=== PATIENT | male | born 1950 | race Caucasian/White ===

== ENCOUNTER → 2018-03-09 10:08 | Outpatient (CLI) | payer OTHER, SELFPAY ==
--- NOTE | 2018-03-09 09:45 | DI.REPORT_ITS ---
SYMPTOMS/DIAGNOSIS: RT KNEE PAIN, S/P INJURY RIGHT KNEE: Three views were provided. When compared with the previous examination, again noted is a small bony fragment adjacent to the medial femoral condyle. Again noted is mild periarticular hypertrophic spurring. The joint spaces are intact. There is no evidence of an effusion.
== END ==
PROVIDERS: PCP Neuromusculoskeletal Medicine & OMM; Visit Provider Physician Assistant
DX: M25.561 Pain in right knee (principal); M76.891 Other specified enthesopathies of right lower limb, excluding foot; S87.01XD Crushing injury of right knee, subsequent encounter
CPT/HCPCS: 73562

== ENCOUNTER → 2018-10-17 14:11 | Outpatient (BNVA) | payer MEDICARE, SELFPAY | PROVIDERS: PCP Neuromusculoskeletal Medicine & OMM; Referring Provider Neuromusculoskeletal Medicine & OMM; Visit Provider Student in an Organized Health Care Education/Training Program | DX: M67.441 Ganglion, right hand (principal); R22.1 Localized swelling, mass and lump, neck | CPT/HCPCS: 99214 ==

== ENCOUNTER 2018-10-21 06:22 | Day surgery (SDC) | payer MEDICARE, SELFPAY ==
[2018-10-21 06:33] VITALS: BP 132/89; PULSE 55; RESP 18; TEMP 35.6; O2SAT 100
[2018-10-21] MEDS: Lactated Ringers 1,000 ML 80 ML IV (06:46)
[2018-10-21] MEDS: ceFAZolin 1 GM/50 ML BAG IVPB (07:31)
[2018-10-21] MEDS: Bupivacaine 0.5% Pres-Free 30 ML VIAL (07:56)
[2018-10-21] MEDS: Lidocaine 1% Pres-Free 5 ML VIAL (07:57)
[2018-10-21] MEDS: Dexamethasone 4 MG/ML VIAL (08:18)
--- NOTE | 2018-10-21 08:40 | PDOC.DSDIS_ITS ---
Discharge Plan Disposition Patient Disposition: HOME Condition: Good Discharge Details Attending Provider: Will Sanchez Primary Care Provider: Slim Corley Roosevelt Meds and New Rx's Prescriptions: New ibuprofen 600 mg tablet 600 mg PO QID PRN (Reason: pain and inflamation) Qty: 40 RF: 0 Continued acyclovir [Zovirax] 30 GM ointment 1 applic Topical BID PRN Qty: 3 RF: 4 naproxen sodium [Aleve] 220 mg Capsule 220 mg PO BID RF: 0 losartan 25 MG tablet 25 mg PO HS RF: 0 omeprazole 20 MG capsule,delayed release(DR/EC) 20 mg PO DAILY PRNRF: 0 Discharge Instructions Activity:: Elevate Remove Dressings/Wound Care:: Do Not Remove Shower/Bathe:: Cover Diet:: Normal Diet Discharge Orders Discharge Orders: Discharge Order (Routine); Ordered 10/21/18 Ordered By: Will Sanchez DS: Diagnosis Discharge Diagnosis (1) Hallux rigidus of right foot: Status: Acute
[2018-10-21 09:00] VITALS: BP 124/85; PULSE 50; RESP 16; TEMP 35.8; O2SAT 100
--- NOTE | 2018-10-21 11:08 | ROE_ITS ---
DATE OF PROCEDURE: October 21, 2018 PREOPERATIVE DIAGNOSIS: End-stage degenerative arthritis with hallux rigidus deformity, right foot. POSTOPERATIVE DIAGNOSIS: Same. PROCEDURE: Saeed bunionectomy with 0.062 K-Wire fixation. SURGEON: Jessy MalikPManjula. ANESTHESIA: LMA General, Mac Santiago CRNA OPERATIVE INDICATIONS: 68-year-old male with longstanding increasing chronic pain associated with en d-stage degenerative arthrosis of the first MPJ, right foot. The patient is being brought to the OR for surgical correction of this deformity, relief of pain. Risks and complications have been discuss ed, including the potential for pain, scarring, infection, wound dehiscence, the need for revisional procedures. He understands there will be some shortening of the great toe due to resection of bone a nd that the hallux may not purchase to ground when standing flatfooted. All questions have been answ ered. Informed consent has been obtained. No promises made to the final outcome of surgery. REPORT OF OPERATION: The patient is brought to the operative suite, placed in the supine position, w here the right foot is prepped and draped in the usual sterile podiatric fashion. Anesthesia being o btained, the right foot was exsanguinated; a well-padded ankle tourniquet inflated 250 mmHg. Attention was directed to the dorsal aspect of the first MPJ, where a 5 cm incision was made medial p arallel to the EHL tendon. The incision was deepened in controlled depth fashion. Hemostasis acquir ed with electrocautery, as needed. Dissection was carried down to the joint capsule. The joint caps ule was incised dorsal midline. The joint capsule was retracted medially and laterally. Two large j oint mice were immediately noted, sitting on the top of the joint. These chunks of bone were removed . Inspection of the joint revealed extensive spurring, degenerative arthritis, complete erosion of t he articular surface from the head and base of the first MPJ. With power instrumentation, 1 cm of gloria ne was removed from the base of the proximal phalanx. The medial, lateral and dorsal hyperostoses fr om the first metatarsal head were resected; all rough and bony edges rasped smooth. Excellent relaxa tion of the hallux was appreciated. The toe was fixated in rectus position with a 0.062 K-Wire in re trograde fashion. Once again the wound was irrigated. The joint capsule was closed with simple inte rrupted suture #3-0 Vicryl; the subcutaneous layer was repaired with simple interrupted suture #4-0 V icryl; the skin was coapted with continuous running suture #4-0 Monocryl. Mastisol, half-inch Steri- Strips applied. Four milligrams of Dexamethasone Phosphate infused. Xeroform, gauze fluff compressi on dressings were applied. The tourniquet was released at thirty-six minutes, vascularity returning immediately to all toes. The patient left the OR with vital signs stable, vascular status intact. H e will be followed by me in the office next week.
== END 2018-10-21 10:00 | disposition home or self-care (01) ==
PROVIDERS: PCP Neuromusculoskeletal Medicine & OMM; Visit Provider Podiatrist
PROC: (CPT 28292; principal; 2018-10-21 07:30)
DX: M20.21 Hallux rigidus, right foot (principal); M19.071 Primary osteoarthritis, right ankle and foot; M79.671 Pain in right foot; M24.074 Loose body in right toe joint(s); I10 Essential (primary) hypertension
CPT/HCPCS: 28292; J0690; J1100; J1885

== ENCOUNTER 2018-10-27 00:16 | Outpatient (CLI) | payer MEDICARE, SELFPAY ==
--- NOTE | 2018-10-27 14:48 | DI.MRI_ITS ---
SYMPTOM/DIAGNOSIS: POSTERIOR CERVICAL SOFT TISSUE MASS, ? LIPOMA, G95.9, SPINAL CORD DISEASE CERVICAL SPINE MRI: Comparison is made with 01/02/14. The patient was unable to tolerate the complete exam due to claustrophobia. The patient does not wish to return for completion of the exam. T 1 sagittal, STIR sagittal and T 2 sagittal sequences were performed. The exam is limited by motion. Endplate osteophytes are again noted throughout projecting circumferentially. There is disc bulging at all levels. The findings are greatest at C 6-7 where there is bilateral neural foraminal narrowing. Advanced degenerative disc changes are also seen at C 5-6. There are also facet degenerative changes. The marrow signal and cord signal appear normal. There is narrowing of the AP dimension of the central canal at C 6-7, not significantly changed from the previous exam. No disc herniation is seen at any level. IMPRESSION: Limited exam due to patient motion and incomplete sequences. There has been no significant change since 2013. Degenerative disc changes are most severe at C 5-6 and C 6-7.
[2018-10-27 15:29] LABS: CREATININE 1.16 mg/dL (0.70-1.30)
== END 2018-10-27 00:36 ==
PROVIDERS: PCP Neuromusculoskeletal Medicine & OMM; Visit Provider Student in an Organized Health Care Education/Training Program
DX: G95.9 Disease of spinal cord, unspecified (principal); Z13.89 Encounter for screening for other disorder; M50.322 Other cervical disc degeneration at C5-C6 level; M50.323 Other cervical disc degeneration at C6-C7 level
CPT/HCPCS: 72141; 82565

== ENCOUNTER → 2018-11-23 14:40 | Outpatient (BNVA) | payer MEDICARE, SELFPAY | PROVIDERS: PCP Neuromusculoskeletal Medicine & OMM; Referring Provider Neuromusculoskeletal Medicine & OMM; Visit Provider Student in an Organized Health Care Education/Training Program | DX: M67.441 Ganglion, right hand (principal); D17.0 Benign lipomatous neoplasm of skin and subcutaneous tissue of head, face and neck; M47.812 Spondylosis without myelopathy or radiculopathy, cervical region | CPT/HCPCS: 99213 ==

== ENCOUNTER 2018-12-29 11:33 | Day surgery (SDC) | payer MEDICARE, SELFPAY ==
[2018-12-29] VITALS (7 sets, daily range): BP systolic 111–149; BP diastolic 76–86; PULSE 43–72; RESP 10–16; TEMP 36–36.6; O2SAT 95–97
--- NOTE | 2018-12-29 11:21 | W.PREOPHP ---
Date of service: 12/29/18 Time of Service: 11:21 Assessment and Plan (1) Lipoma: Current visit: No Status: Acute Ryley is a 68-year-old who has a posterior cervical lipoma. It is superficial and has been demonstrated to be a lipoma on the MRI. It seems to bother him with neck extension and therefore he desires to be removed. I reviewed the surgical details of this procedure to include bleeding, infection, pain, stiffness, and recurrence. Despite this, he elects to proceed. (2) Ganglion, right hand: Current visit: No Status: Acute Ryley also has a ganglion cyst of the right hand, first webspace. I previously reviewed treatment options with him. He is try to treat it conservatively but continues interfere with daily activities. Therefore, recommend surgical excisional biopsy. I reviewed the risk of the seizure to include bleeding, infection, pain, stiffness, damage to nerves and vessels, recurrence. Despite these risk, he elects to proceed. History of Present Illness Chief Complaint: Right Hand Mass and Posterior Cervical Lipoma Narrative: Ryley is a 68-year-old who has had a mass to the right hand, thenar region. It has not been growing in size but it is quite firm and does not in the way. This is been evaluated by an MRI which demonstrated was a ganglion cyst. Continues interfere with his hand function and he desires it to be removed. He has had no other numbness or tingling or other skin changes this area. In addition, he reports having a lump to the posterior aspect of his neck. He has known cervical spondylosis. MRI revealed this was a lipoma. He also desires us to be removed. He otherwise in good health. He has no change to his health. He denies chest pain, shortness of breath, fever, chills. He has had no change in medications. Review of Systems Review of Systems All systems reviewed & are unremarkable except as noted in HPI and below PFS Medical History Ganglion (Acute) History of restless legs syndrome (Acute) Hx of gastric ulcer (Acute) Lipoma (Acute) Perforated chronic duodenal ulcer (Acute) GERD (gastroesophageal reflux disease) (Chronic) Hypertension (Chronic) Surgical History History of bunionectomy of right great toe (Acute) Hx of arthroplasty (Acute) Status post repair of hydrocele (Acute) History of arthroscopic knee surgery (Chronic) Hx of appendectomy (Chronic) Hx of hernia repair (Chronic) Social History Smoking/Tobacco Use Status: Former Tobacco Use Quit Date: 07/12/00 Alcohol Intake: never Drug use: Daily Substance use type: marijuana Details: Smoking hx of 1-2ppd x 20 yrs, quitting approximately 2000. Pt. reports daily edible marijuana consumption Do you feel safe at home: Yes Do you feel safe in your relationship?: Yes Meds Home Medications Medication Instructions Recorded Confirmed Type acyclovir [Zovirax] 1 applic TOPICAL BID PRN #3 script 11/21/12 12/27/18 History losartan 25 mg PO HS 08/04/17 12/27/18 History omeprazole 20 mg PO DAILY PRN 08/04/17 12/27/18 History naproxen sodium [Aleve] 220 mg PO BID 10/18/18 12/27/18 History ibuprofen 600 mg PO QID PRN #40 tab NS 10/21/18 12/27/18 Rx alprazolam 0.5 mg tablet 0.5 mg PO ONCE PRN #2 tab 11/01/18 12/27/18 Rx Allergies Allergy/AdvReac Type Severity Reaction Status Date / Time atorvastatin AdvReac Intermediate MYALGIAS Unverified 12/27/18 10:32 Exam Resp Effort & Inspection: normal respiratory effort Auscultation: clear to auscultation bilaterally Cardio Rate: regular rate Rhythm: regular rhythm Extrem Other: There is a mass within the first webspace of the right hand. It is well-circumscribed and firm. It is nonmobile and not seemingly moved by motion of the thumb flexor tendons. No skin discoloration. Negative Tinel's. Evaluation of the neck shows a well-circumscribed mass in the posterior soft tissues of the neck. Is in the midline. There again is no overlying skin changes.
--- NOTE | 2018-12-29 11:25 | HPE_ITS ---
Date of service: 12/29/18 Time of Service: 11:21 Assessment and Plan (1) Lipoma: Current visit: No Status: Acute Ryley is a 68-year-old who has a posterior cervical lipoma. It is superficial and has been demonstrated to be a lipoma on the MRI. It seems to bother him with neck extension and therefore he desires to be removed. I reviewed the surgical details of this procedure to include bleeding, infection, pain, stiffness, and recurrence. Despite this, he elects to proceed. (2) Ganglion, right hand: Current visit: No Status: Acute Ryley also has a ganglion cyst of the right hand, first webspace. I previously reviewed treatment options with him. He is try to treat it co nservatively but continues interfere with daily activities. Therefore, recommend surgical excisional biopsy. I reviewed the risk of the seizure to include bleeding, infection, pain, stiffness, damage to nerves and vessels, recurrence. Despite these risk, he elects to proceed. History of Present Illness Chief Complaint: Right Hand Mass and Posterior Cervical Lipoma Narrative: Ryley is a 68-year-old who has had a mass to the right hand, thenar region. It has not been growing in size but it is quite firm and does not in the way. This is been evaluated by an MRI which demonstrated was a ganglion cyst. Continues interfere with his hand function and he desires it to be removed. He has had no other numbness or tingling or other skin changes this area. In addition, he reports having a lump to the posterior aspect of his neck. He has known cervical spondylosis. MRI revealed this was a lipoma. He also desires us to be removed. He otherwise in good health. He has no change to his health. He denies chest pain, shortness of breath, fever, chills. He has had no change in medications. Review of Systems Review of Systems All systems reviewed & are unremarkable except as noted in HPI and below [facility] Medical History Ganglion (Acute) History of restless legs syndrome (Acute) Hx of gastric ulcer (Acute) Lipoma (Acute) Perforated chronic duodenal ulcer (Acute) GERD (gastroesophageal reflux disease) (Chronic) Hypertension (Chronic) Surgical History History of bunionectomy of right great toe (Acute) Hx of arthroplasty (Acute) Status post repair of hydrocele (Acute) History of arthroscopic knee surgery (Chronic) Hx of appendectomy (Chronic) Hx of hernia repair (Chronic) Social History Smoking/Tobacco Use Status: Former Tobacco Use Quit Date: 07/12/00 Alcohol Intake: never Drug use: Daily Substance use type: marijuana Details: Smoking hx of 1-2ppd x 20 yrs, quitting approximately 2000. Pt. report s daily edible marijuana consumption Do you feel safe at home: Yes Do you feel safe in your relationship?: Yes Meds Home Medications Medication Instructions Recorded Confirmed Type acyclovir [Zovirax] 1 applic TOPICAL BID PRN #3 script 11/21/12 12/27/18 History losartan 25 mg PO HS 08/04/17 12/27/18 History omeprazole 20 mg PO DAILY PRN 08/04/17 12/27/18 History naproxen sodium [Aleve] 220 mg PO BID 10/18/18 12/27/18 History ibuprofen 600 mg PO QID PRN #40 tab NS 10/21/18 12/27/18 Rx alprazolam 0.5 mg tablet 0.5 mg PO ONCE PRN #2 tab 11/01/18 12/27/18 Rx Allergies Allergy/AdvReac Type Severity Reaction Status Date / Time atorvastatin AdvReac Intermediate MYALGIAS Unverified 12/27/18 10:32 Exam Resp Effort & Inspection: normal respiratory effort Auscultation: clear to auscultation bilaterally Cardio Rate: regular rate Rhythm: regular rhythm Extrem Other: There is a mass within the first webspace of the right hand. It is well- circumscribed and firm. It is nonmobile and not seemingly moved by motion of the thumb flexor tendons. No skin discoloration. Negative Tinel's. Evaluation of the neck shows a well-circumscribed mass in the posterior soft tissues of the neck. Is in the midline. There again is no overlying skin changes.
[2018-12-29] MEDS: Lactated Ringers 1,000 ML 80 ML IV (12:26)
--- NOTE | 2018-12-29 13:14 | W.PM.DSUDISC ---
Discharge Plan Disposition Patient Disposition: HOME Condition: Good Discharge Details Reason For Visit: Right Hand Cyst and Posterior Cervial Lipoma Attending Provider: Clif Bales Primary Care Provider: Slim Corley Home Meds and New Rx's Prescriptions: New hydrocodone-acetaminophen 5-325 mg tablet 1 tab PO Q4H PRN (Reason: pain) Qty: 12 RF: 0 acetaminophen 500 mg tablet 1,000 mg PO Q8H PRN (Reason: pain) Qty: 90 RF: 3 Continued acyclovir [Zovirax] 30 GM ointment 1 applic Topical BID PRN Qty: 3 RF: 4 alprazolam 0.5 mg tablet 0.5 mg PO ONCE PRN (Reason: claustrophobia) Qty: 2 RF: 0 gabapentin 300 mg Capsule 300 mg PO TID RF: 0 ibuprofen 600 mg tablet 600 mg PO QID PRN (Reason: pain and inflamation) Qty: 60 RF: 0 losartan 25 MG tablet 25 mg PO HS RF: 0 omeprazole 20 MG capsule,delayed release(DR/EC) 20 mg PO DAILY PRNRF: 0 Discontinued naproxen sodium [Aleve] 220 mg Capsule 220 mg PO BID RF: 0 Discharge Instructions Additional Instructions: Activity: You should keep the hand/thumb elevated as much as possible for the first few days. You may use the other fingers as tolerated but avoid trying to do too much too soon. You may perform light activities with the dressing in place. You should avoid any excessive neck motions. Dressing/Cast: Your dressing should stay in place on the hand for at least 3 days. It may get wet after 3 days. You may loosen the SIMONA wrap if you feel it is too tight and then rewrap more loosely. The neck dressing may stay in place until your follow-up. If it gets soaked, or you desire, you may remove it after 3 days and keep it covered with light gauze. Medications: - You should take Tylenol and Ibuprofen for baseline pain control. - You have Hydrocodone for breakthrough pain. - You may apply ice. Follow-up: 10 days Referrals: Clif Bales MD [ [facility] STAFF PHYSICIAN] - Activity:: Elevate Remove Dressings/Wound Care:: 72 hours Shower/Bathe:: 72 hours Diet:: As Tolerated Discharge Orders Discharge Orders: Discharge Order (Routine); Ordered 12/29/18 Ordered By: Clif Bales DS: Diagnosis Discharge Diagnosis (1) Lipoma: Status: Acute (2) Ganglion, right hand: Status: Acute
[2018-12-29] MEDS: ceFAZolin 2 GM/50 ML BAG IVPB (13:15)
--- NOTE | 2018-12-29 13:36 | SOFT_PTH ---
PATIENT: Abilio Lewis LOC: [facility]I U#:[id number] AGE/SX: 68/M ROOM: RE12/29/[address]: Clif Bales MD : 1950 BED: DIS: 12/29/2018 SPEC #: [id number] RECD: 12/29/18 18:00 STATUS: ELISA REQ #: [id number] DAMI: 12/29/18 13:[address]: Clif Bales DEPT: Surgical Specimen RECD BY: Yamileth Juarez ENTERED: 12/29/18 18:01 SP TYPE: SOFT OTHR DR: Slim Corley Tissues: 1 - SOFT TISSUE-CYST(NOT LIPOMA) Procedures: GROSS AND MICRO LEVEL 4 Comments: [id number]
[2018-12-29] MEDS: fentaNYL 100 MCG/2 ML VIAL IVP (14:34)
[2018-12-29] MEDS: Ketorolac 15 MG/ML VIAL IVP (14:41)
[2018-12-29] MEDS: HYDROcodone 5/Acetaminophen 325 TAB PO (15:27)
--- NOTE | 2018-12-30 16:53 | ROE_ITS ---
DATE OF SURGERY: December 29, 2018 PREOPERATIVE DIAGNOSIS: Posterior cervical neck lipoma, right hand mass. POSTOPERATIVE DIAGNOSIS: Same. SURGERY: 1. Excisional biopsy of right hand mass. 2. Excision of posterior cervical lipoma. SURGEON: Clif Bales M.D. ANESTHESIA: General. ESTIMATED BLOOD LOSS: Minimal. COMPLICATIONS: None. DISPOSITION: The patient was awakened from anesthesia and taken to the PACU in stable condition. SPECIMENS: A well-circumscribed mass approximately 1.5 cm in diameter was sent to Pathology in [facility] [address]. INDICATION FOR PROCEDURE: Ryley is a 68-year-old who has had a fairly consistent mass about the righ t hand and the radial aspect of the first MCP joint. Aspiration has been attempted on at least two o ccasions with no success. MRI had confirmed what appeared to be a ganglion cyst. It was quite firm and got in the way of motion of his thumb. He therefore desired for it to be removed. I discussed t he risks of this procedure to include bleeding, infection, pain, stiffness, recurrence, damage to ner ves and vessels, damage to muscles and tendons, need for repeat procedures. Despite these risks, he elected to proceed. In addition, he had a lipoma on the posterior neck region. This was confirmed w ith MRI. Once again this was getting in the way of his neck with motion and he desired it be removed . I once again discussed the risks of this procedure to include bleeding, infection, pain, stiffness , damage to nerves and vessels, damage to muscles and tendons, recurrence. Despite these risks, he e lected to proceed. PROCEDURE DESCRIPTION: Ryley was greeted in the preoperative holding area. His identity was confirm ed and the correct side was identified and marked. The consent was reviewed with the patient and sig fran. He was taken back to the Operating Room and placed in the supine position. All bony prominence s were well-padded. The right hand was placed on the hand table. A general anesthetic was administe red. Prophylactic antibiotics in the form of Cefazolin were given. The right hand was prepped with ChloraPrep and draped in a standard fashion. A time-out was performed for safe surgery. An Esmarch tourniquet was made for the right hand. The proposed surgical site was anesthetized with 0.5% Bupivacaine with epinephrine. A 2 cm incision was made within the flexion crease of the thumb. Sharp dissection was carried only through the skin. Blunt dissection revealed that the ulnar aspect of the digital nerve was draped over the prominence of the mass. Once this was identified it was di ssected away from the mass and retracted. The capsule of the mass was entered and it was able to be freed bluntly from its surrounding tissues. There was some connection deep, which was transected aft er dissecting it out fully. It did seem to go down towards the MCP joint. However it was not as flu id-filled as I was expecting. There was a yellowish coloration, almost like a fatty degeneration of a cyst. Once it was taken out I transected the stalk. I sent the specimen to Pathology. I used a r ongeur to debride the soft tissues going into the MCP joint and the capsule of the MCP joint. All th e while the neurovascular bundles were retracted. The wound was then thoroughly irrigated. The tour niquet was deflated and there was no notable bleeding. The thumb was pink and well-perfused. The sk in was closed with #4-0 Nylon. A dressing of Xeroform, 4x4's, conform and SIMONA wrap was applied. Our attention was then turned to the neck. While keeping the back table sterile I unscrubbed and helped reposition the patient to the left later al decubitus position. The neck was forward flexed a slight amount. The lipoma had been previously marked on the skin and was palpable. The posterior neck was then prepped with ChloraPrep and draped in a standard fashion. The proposed surgical site was anesthetized with 0.5% Bupivacaine with epinep hrine. A 4 cm incision was made in the midline of the cervical spine. This dissection was carried t hrough the skin and soft tissue. The lipoma was palpable and using this palpation we were able to id entify the lipoma. Once the capsule lipoma was entered it was able to be dissected free from the ernestine rounding subcutaneous tissue. The lipoma was removed in whole. A portion of it was transected; I re moved the pieces. There was no palpable lipoma remaining. The wound was thoroughly irrigated. The deep tissue was closed with a #3-0 Vicryl. The skin was closed with #4-[address] Nylon[address]ep[address]x Silver [address] essing was applied. At the end of the case all counts were correct. He was transferred back to the PACU in stable condition.
== END 2018-12-29 15:52 | disposition home or self-care (01) ==
PROVIDERS: PCP Neuromusculoskeletal Medicine & OMM; Visit Provider Student in an Organized Health Care Education/Training Program
PROC: (CPT 26160; principal; 2018-12-29 13:30)
PROC: (CPT 26111; 2018-12-29 13:30)
DX: D48.1 Neoplasm of uncertain behavior of connective and other soft tissue; D17.9 Benign lipomatous neoplasm, unspecified
CPT/HCPCS: 26111; 11424; 12042; 88305; NC; J0690; J1885; J2405; J3010

== ENCOUNTER → 2019-01-09 10:30 | Outpatient (BNVA) | payer MEDICARE, SELFPAY | PROVIDERS: PCP Neuromusculoskeletal Medicine & OMM; Referring Provider Neuromusculoskeletal Medicine & OMM; Visit Provider Student in an Organized Health Care Education/Training Program | DX: Z47.89 Encounter for other orthopedic aftercare (principal); D48.1 Neoplasm of uncertain behavior of connective and other soft tissue; D17.0 Benign lipomatous neoplasm of skin and subcutaneous tissue of head, face and neck ==

== ENCOUNTER → 2019-04-14 08:33 | Outpatient (BNVA) | payer MEDICARE, SELFPAY | PROVIDERS: PCP Neuromusculoskeletal Medicine & OMM; Referring Provider Neuromusculoskeletal Medicine & OMM; Visit Provider Student in an Organized Health Care Education/Training Program | DX: R69 Illness, unspecified (principal) ==

== ENCOUNTER → 2019-07-03 13:56 | Outpatient (BNVA) | payer MEDICARE, SELFPAY | PROVIDERS: PCP Neuromusculoskeletal Medicine & OMM; Referring Provider Neuromusculoskeletal Medicine & OMM; Visit Provider Student in an Organized Health Care Education/Training Program | DX: R22.9 Localized swelling, mass and lump, unspecified (principal); D17.9 Benign lipomatous neoplasm, unspecified | CPT/HCPCS: 99214 ==

== ENCOUNTER → 2019-07-21 11:10 | Outpatient (BNVA) | payer MEDICARE, SELFPAY | PROVIDERS: PCP Neuromusculoskeletal Medicine & OMM; Referring Provider Student in an Organized Health Care Education/Training Program; Visit Provider Surgery | DX: D17.9 Benign lipomatous neoplasm, unspecified (principal); I10 Essential (primary) hypertension | CPT/HCPCS: 99202; 99213 ==

== ENCOUNTER 2019-08-02 07:17 | Day surgery (SDC) | payer MEDICARE, SELFPAY ==
[2019-08-02] VITALS (7 sets, daily range): BP systolic 124–152; BP diastolic 76–92; PULSE 52–67; RESP 13–18; TEMP 36–36.5; O2SAT 95–100
--- NOTE | 2019-08-02 06:56 | W.PM.OP ---
Date of service: 08/02/19 Time of Service: 09:37 Operative Note Operative Note DATE OF PROCEDURE: 08/02/19 PRE-OP DIAGNOSIS: Lipomas of Upper abdomen and flank x4 Lipomas LUE x4 POST-OP DIAGNOSIS: same PROCEDURE: Excision of multiple lipomas SURGEON: Jeanna Machuca ANESTHESIA: local and other (General with LMA/ ASA 2/ Yoandy Bradley CRNA) ESTIMATED BLOOD LOSS: 15 PATHOLOGY: none sent COMPLICATIONS: None Patient was transported to: same day Patient's condition: stable Implants: none Indications: 69 year old male with multiple lipomas on his LUE and abdomen which are starting to bother him Findings: 8 Lipomas removed Rt. Flank- 4 cm x 2 cm RUQ- 2.5 cm x 1 cm 3 cm x 2 cm Left lower chest wall- 5 cm x 2 cm LUE- 4 cm x 2 cm 2 cm x 0.5 3 cm x 1 cm Left flank- 4 cm x 2 cm Procedure Description: After informed consent was obtained and the 8 lipomas were marked, the patient was taken to the Operating room and placed on the table in a supine position. Monitors were applied and he was sedated. A time out was done and the patients name, , allergies to medications, procedure to be done, DVT prophilaxis and antibiotic prophilaxis were reviewed. Fire risk was assessed. Once the patient was comfortable his left arm was placed on a madsen stand on a Gel pad and secured with a towel and tape. The abdomen and lower chest, flank, and LUE were all prepped and draped in a standard fashion. Next Exparel was mixed 50/50 with 0.25% Bupivocane and the skin and subcutaneous tissue of all the lipomas was injected. Incisions over the 8 palpable Lipomas was made with a 15 Blade. Dissection was taken down to the lipomas with cautery and scissors. The lipomas were all dissected circumferentially with curved iris scissors and or blunt finger dissection. Once all of the Lipomas were removed the subcutaneous tissue of all the incisions were re-approximated with interrupted 3-0 Vicryl sutures. The dermis was re-approximated with 4-0 Vicryl continuous stitch. The skin was then cleaned and dried. Skin affix was then applied over all the incisions. The patient was then woken up and taken back to recovery in stable condition. There were no immediate complications. Needle, instrument and sponge counts were correct at the end of the case.
--- NOTE | 2019-08-02 06:57 | PDOC.DSDIS_ITS ---
Discharge Plan Disposition Patient Disposition: HOME Condition: Good Discharge Details Reason For Visit: Multiple lipomas Attending Provider: Jeanna Machuca Primary Care Provider: Slim Corley Home Meds and New Rx's Prescriptions: Continued acyclovir [Zovirax] 30 GM ointment 1 applic Topical BID PRN Qty: 3 RF: 4 alprazolam 0.5 mg tablet 0.5 mg PO ONCE PRN (Reason: claustrophobia) Qty: 2 RF: 0 ibuprofen 600 mg tablet 600 mg PO QID PRN (Reason: pain and inflamation) Qty: 60 RF: 0 losartan 25 MG tablet 25 mg PO HS RF: 0 Discharge Instructions Additional Instructions: Activity at Home after surgery: 1. No driving while in pain or taking pain medications 2. No strenuous activity or heavy lifting for 2 weeks Diet, Nutrition, & wound healin. Avoid alcohol until after you are recovered from your surgery 2. Make sure to eat plenty of lean protein (meat, fish, eggs, cottage cheese, beans) 3. Eat a variety of fruits and vegetables. Eat plenty of high fiber foods to avoid constipation. 4. Drink plenty of liquids to stay hydrated and avoid constipation Pain Medications: 1. Alternate Tylenol 650 mg and Ibuprofen 600 mg every 3 hours 2. If a narcotic has been prescribed take as directed only for breakthrough pain For Constipation: 1. Take Milk of Magnesia or MiraLax as needed for constipation Other: 1. You may shower daily. Do not scrub the incisions 2. Do not soak the incisions for 1 week 3. You may alternate ice and heat as needed for pain and swelling Wound Care: 1. Keep the incisions clean and dry Please call our office if you develop: 1. Fevers >101.5 2. Nausea or Vomiting 3. Worsening pain 4. Redness and thick discharge from the wounds If after hours please call the Hospital at and ask to speak to the on-call surgeon Referrals: Jeanna Machuca MD [ [facility] STAFF PHYSICIAN] - 08/18/19 9:00 am Activity:: Activity as Tolerated Diet:: As Tolerated Discharge Orders Discharge Orders: Discharge Order (Routine); Ordered 08/02/19 Ordered By: Jeanna Machuca DS: Diagnosis Discharge Diagnosis (1) Multiple lipomas: Status: Acute
[2019-08-02] MEDS: Lactated Ringers 1,000 ML 80 ML IV (08:00)
[2019-08-02] MEDS: ceFAZolin 2 GM/50 ML BAG IVPB (09:18)
== END 2019-08-02 12:57 | disposition home or self-care (01) ==
LOC: SUR 07:18
PROVIDERS: PCP Neuromusculoskeletal Medicine & OMM; Visit Provider Surgery
PROC: (CPT 11406; principal; 2019-08-02 09:15)
DX: D17.1 Benign lipomatous neoplasm of skin and subcutaneous tissue of trunk (principal); D17.22 Benign lipomatous neoplasm of skin and subcutaneous tissue of left arm
CPT/HCPCS: 11406; 11404 ×2; 11402; 12035; 11403 ×3; J0690; J1885; J2001; J2405; J2704

== ENCOUNTER → 2019-08-18 08:57 | Outpatient (BNVA) | payer MEDICARE, SELFPAY | PROVIDERS: PCP Neuromusculoskeletal Medicine & OMM; Referring Provider Neuromusculoskeletal Medicine & OMM; Visit Provider Surgery | DX: Z48.817 Encounter for surgical aftercare following surgery on the skin and subcutaneous tissue (principal); Z86.018 Personal history of other benign neoplasm ==

== ENCOUNTER 2019-11-16 10:33 | Outpatient (CLI) | payer MEDICARE, SELFPAY ==
--- NOTE | 2019-11-16 10:15 | DI.RAD_ITS ---
EXAM: XR KNEE RT 3V AP,LAT,LO CLINICAL HISTORY: Worsening Right KNee Pain. TECHNIQUE: 2D digital imaging was performed. COMPARISON: CR RIGHT KNEE 3 VIEWS from 03/09/2018 FINDINGS: BONES: No acute fracture is present. No bony destructive lesion is seen. A smoothly marginated bony density is again noted adjacent to the medial femoral condyle. There is mild spurring at the tibial spines and quadriceps insertion on the patella. JOINTS: The knee is normally aligned. No joint effusion is seen. There is no significant joint space narrowing. SOFT TISSUE: Normal. IMPRESSION: Stable appearance of the left knee with bony fragment adjacent deformity of the medial femoral condyl e. Mild degenerative changes. DATA REPOSITORY: RADIATION DOSE DELIVERED:
== END 2019-11-16 10:53 ==
PROVIDERS: PCP Neuromusculoskeletal Medicine & OMM; Visit Provider Student in an Organized Health Care Education/Training Program
DX: M25.561 Pain in right knee (principal); M17.11 Unilateral primary osteoarthritis, right knee
CPT/HCPCS: 73562

== ENCOUNTER 2020-10-31 14:09 | Outpatient (CLI) | payer MEDICARE, SELFPAY ==
--- NOTE | 2020-10-31 09:45 | DI.RAD_ITS ---
EXAM: XR WRIST LT COMPLETE CLINICAL HISTORY: LT WRIST PAIN, M25.532, r/o osteopathology. TECHNIQUE: 2D digital imaging was performed. COMPARISON: No exams were available for comparison FINDINGS: There is no evidence of fracture of the distal radius and ulna. No significant ulnar variance. However, on the lateral view there is a dorsally located calcific density measuring 4.5 x 3.5 cm. Th is may be a fracture fragment off of the triquetrum bone. Scapholunate distance is normal. No erosions. There are moderate degenerative changes at the at the articulation between the thumb metacarpal and trapezium. IMPRESSION: DATA REPOSITORY: RADIATION DOSE DELIVERED:
== END 2020-10-31 14:29 ==
PROVIDERS: PCP Neuromusculoskeletal Medicine & OMM; Visit Provider Nurse Practitioner Family
DX: M25.532 Pain in left wrist (principal); R93.7 Abnormal findings on diagnostic imaging of other parts of musculoskeletal system
CPT/HCPCS: 73110

== ENCOUNTER 2021-05-15 15:06 | Outpatient (CLI) | payer OTHER, SELFPAY ==
--- NOTE | 2021-05-15 10:15 | DI.RAD_ITS ---
Exam(s) XR KNEE RT 3V AP,LAT,LO EXAM: XR KNEE RT 3V AP,LAT,LO CLINICAL HISTORY: continued pain. TECHNIQUE: 2D digital imaging was performed. COMPARISON: CR XR KNEE RT 3V AP,LAT,LO from 11/16/2019 FINDINGS: There is no evidence of acute fracture nor joint effusion. Mild degenerative changes are noted in th e medial compartment. Again noted is a previously described osteophytic density adjacent to but independent outer aspect of the medial femoral condyle. This is unchanged from the November 2019 study. IMPRESSION: Unchanged from November 2019 DATA REPOSITORY: RADIATION DOSE DELIVERED:
== END 2021-05-15 15:07 | disposition home or self-care (01) ==
LOC: DIORS 15:06
PROVIDERS: PCP Neuromusculoskeletal Medicine & OMM; Referring Provider Neuromusculoskeletal Medicine & OMM; Visit Provider Physician Assistant Surgical
DX: M25.561 Pain in right knee (principal); S87.01XD Crushing injury of right knee, subsequent encounter
CPT/HCPCS: 73562

== ENCOUNTER 2021-06-10 01:50 | Outpatient (CLI) | payer OTHER, SELFPAY ==
--- NOTE | 2021-06-10 06:45 | DI.MRI_ITS ---
Exam(s) MR LOWER JOINT RT WO EXAM: MR LOWER JOINT RT WO CLINICAL HISTORY: crush injury rt leg, knee, pain,s87.81xa,s87.01xd. TECHNIQUE: Multiplanar multisequence MRI was performed. COMPARISON: MR MRI R LOWER JOINT WO CONT from 08/04/2016 MR MRI R LOWER JOINT WO CONT from 08/04/2016 CR XR KNEE RT 3V AP,LAT,LO from 05/15/2021 CR XR KNEE RT 3V AP,LAT,LO from 05/15/2021 FINDINGS: BONES: There is mild depression in the lateral tibial plateau with subchondral edema present. There is mild thinning of the overlying articular cartilage. Marrow signal is otherwise within normal limi ts. JOINTS: There is mild thinning of the articular cartilage in the medial patellar facet with mild unde rlying marrow edema. No significant joint effusion is present. TENDONS: Extensor mechanism: Unremarkable. Medial retinaculum: Unremarkable. Lateral retinaculum: Unremarkable. Popliteus: Unremarkable. MUSCLES: Unremarkable. MENISCI: The medial meniscus is unremarkable. There is now linear hyperintense signal seen within th e body of the lateral meniscus. This may represent degeneration versus a tear. SOFT TISSUES: There is a small popliteal cyst. LIGAMENTS: Anterior Cruciate: Unremarkable. Posterior Cruciate: Unremarkable. Medial Collateral:Unremarkable. A round osseous density is seen in cooperated within the proximal med ial collateral ligament. This may be from old trauma. Lateral Collateral: Unremarkable. OTHER: IMPRESSION: 1. New hyperintense signal in the body of the lateral meniscus which may represent degeneration versu s a tear. 2. Small depression in the lateral tibial plateau with associated marrow edema. Differential conside rations include plateau fracture or osteochondral injury. 3. No evidence of a ligament tear. DATA REPOSITORY:
== END 2021-06-10 02:10 ==
PROVIDERS: PCP Neuromusculoskeletal Medicine & OMM; Visit Provider Student in an Organized Health Care Education/Training Program
DX: S87.01XA Crushing injury of right knee, initial encounter (principal); S87.81XA Crushing injury of right lower leg, initial encounter; R93.6 Abnormal findings on diagnostic imaging of limbs; X58.XXXA Exposure to other specified factors, initial encounter
CPT/HCPCS: 73721

== ENCOUNTER 2021-07-17 10:49 | Outpatient (CLI) | payer MEDICARE, SELFPAY ==
--- NOTE | 2021-07-17 10:45 | RT.EKG_ITS ---
APPROVED REPORT Exam: Resting ECG Reason for Exam: CHISELER HEAD Visit/ Basline needed Patient Location: O HR:57 bpm ECG Measurements Heart Rate 57 AXIS [place] 156 P 10 QRSd 143 QRS -21 QT 427 T 19 QTc 416 Conclusion Sinus rhythm...normal P axis, V-rate 50- 99 Right bundle branch block...QRSd>120, terminal axis(90,270)
== END 2021-07-17 10:50 | disposition home or self-care (01) ==
LOC: DI.CARD 10:55
PROVIDERS: PCP Neuromusculoskeletal Medicine & OMM; Referring Provider Neuromusculoskeletal Medicine & OMM; Visit Provider Internal Medicine Cardiovascular Disease
DX: I10 Essential (primary) hypertension (principal); I45.10 Unspecified right bundle-branch block
CPT/HCPCS: 93010

== ENCOUNTER → 2021-07-17 10:49 | Outpatient (BNVA) | payer MEDICARE, SELFPAY | PROVIDERS: PCP Neuromusculoskeletal Medicine & OMM; Referring Provider Neuromusculoskeletal Medicine & OMM; Visit Provider Internal Medicine Cardiovascular Disease | DX: R06.02 Shortness of breath (principal); R07.9 Chest pain, unspecified; I10 Essential (primary) hypertension | CPT/HCPCS: 93005; 99203; 99214 ==

== ENCOUNTER 2021-07-28 00:10 | Outpatient (CLI) | payer MEDICARE, SELFPAY ==
--- NOTE | 2021-07-28 06:30 | DI.NM_ITS ---
APPROVED REPORT Exam: Exercise Treadmill Patient Location: Out-Patient Room/Bed: Stress Nurse: Karoline Mast RN Ordering Provider:FLOWER DOWNINGD, Contact Number: [phone] BMI: 27.04 Baseline Rhythm: Sinus Bradycardia, RBBB Indications: CHEST PAIN, NON DIAGNOSTIC STRESS ECHO, SOB Medical History Medical History: HTN, GERD, Hx of Tobacco use Cardiac Medications: Losartan, Omeprazole PRN, Allergies: Atorvastatin, Hydromorphone Cardiac Risk Factors: HTN, Hyperlipidemia, Smoking (former) Previous Cardiac Procedures: None Pretest Chest Pain Characteristics: No chest pain Exercise History: Sedentary Physical Disabilities: None Lung Sounds: Clear to auscultation Heart Sounds: Regular Stress Test Details Test: Exercise stress testing was performed using a Lobito protocol. Nuclear Acquisition: Rest Tc-99m/Stress Tc-99m 1 day Rest Isotope: Tc-99m Sestamibi. Dose: 12.1 Date: 07/28/2021 Injection Time: 0850 Stress Isotope: Tc-99m Sestamibi. Dose: 37.1 Date: 07/28/2021 Injection Time: 1018 HR Resting HR Supine: 52 bpm Max Heart Rate (APMHR): 151.847491 bpm Resting HR Standin bpm Target HR (85% APMHR): 128.493984 bpm Max HR Achieved: 141 bpm % of APMHR: 93.38 Recovery HR: 61 bpm HR response to stress: Normal HR response to stress BP Resting BP Supine: 130/88 mmHg Resting BP Standin/88 mmHg Max BP: 240/118 mmHg Recovery BP: 158/94 mmHg BP response to stress: Abnormal hypertensive response to stress. ECG Resting ECG: Sinus Bradycardia, RBBB Ectopy: None Stress ECG: Sinus Tachycardia, RBBB ST Change: No significant ST segment changes noted Arrhythmia: PACs, increased PVC frequency in last stage of exercise Comment: flipped T waves in leads V1-V3 during exercise Recovery ECG: Sinus Rhythm, RBBB, , Clear Recovery ST Change: No significant ST segment changes noted Recovery Arrhythmia: PACs, PAC couplet Comment: T wave inversions returning to baseline/upright position by end of recovery period. Clinical Reason for Termination: Dyspnea Stress Symptoms: Dyspnea Exercise duration: 06 min01 sec Highest Stage Reached: Stage 2: 2.5 mph at 12% grade. Exercise capacity: 7.08 METs Pace Treadmill Score: 6 Rate Pressure Product: [id number] Stress ECG Conclusion 1. Resting electrocardiogram showed right bundle branch block 2. Patient exercised on the Lobito protocol and completed a workload of 7.08 METS, stopping due to juani rtness of breath 3. Hypertensive blood pressure response to exercise. Normal heart rate response, the patient achieve d 93% of predicted heart rate for age 4. At peak exercise, the electrocardiogram showed J-point depression and upsloping ST segments, negat jolly for myocardial ischemia 5. Atrial and ventricular ectopic beats were noted Pace Treadmill Score is 6 which is Low risk. Stress Test Summary STAGE Time (mins) Speed (mph) Grade (%) HR BP SYMPTOMS METS Supine 52 130/88 Standing 61 132/88 1 3 1.7 10 98 142/98 SpO2 99% 4.6 2 6 2.5 12 140 150/94 SpO2 97%, c/o mod SOB 7 1 min recovery 95 240/118 SOB resolved w/ rest 3 min recovery 63 220/92 6 min recovery 61 158/94 MPI Conclusion Normal myocardial perfusion without evidence of ischemia or prior infarction EF 55%, normal wall motion Radiologist Interpretation Radiologist agrees with Lunchroom Operator's Interpretation. Radiologist Interpretation by: Jana Villa MD Interpretation Date/Time: 07/28/2021 16:45:11
== END 2021-07-28 00:30 ==
PROVIDERS: PCP Neuromusculoskeletal Medicine & OMM; Visit Provider Internal Medicine Cardiovascular Disease
DX: R06.02 Shortness of breath (principal); R07.9 Chest pain, unspecified; I45.10 Unspecified right bundle-branch block; I49.1 Atrial premature depolarization; I49.3 Ventricular premature depolarization; I10 Essential (primary) hypertension; E78.5 Hyperlipidemia, unspecified; Z87.891 Personal history of nicotine dependence
CPT/HCPCS: 78452; 93016; 93018; 93017

== ENCOUNTER 2021-08-06 01:17 | Outpatient (CLI) | payer MEDICARE, SELFPAY ==
[2021-08-06 12:17] LABS: Source Nasal/Nares
[2021-08-06 15:22] LABS: COVID-19 PCR Negative (Negative)
== END 2021-08-06 01:18 | disposition home or self-care (01) ==
LOC: LBO 01:17
PROVIDERS: PCP Neuromusculoskeletal Medicine & OMM; Visit Provider Student in an Organized Health Care Education/Training Program
DX: Z20.822 Contact with and (suspected) exposure to COVID-19 (principal); Z01.818 Encounter for other preprocedural examination
CPT/HCPCS: 87635

== ENCOUNTER 2021-08-08 10:01 | Day surgery (SDC) | payer OTHER, SELFPAY ==
[2021-08-08] VITALS (8 sets, daily range): BP systolic 115–152; BP diastolic 69–91; PULSE 43–64; RESP 11–18; TEMP 36.2–36.3; O2SAT 95–99; BMI 27.4
--- NOTE | 2021-08-08 07:32 | W.PM.OP ---
Date of service: 08/08/21 Time of Service: 13:00 Operative Note Operative Note DATE OF PROCEDURE: 08/08/21 PRE-OP DIAGNOSIS: Right knee 1. Lateral meniscus tear 2. Synovitis 3. Proximal MCL avulsion fracture nonunion POST-OP DIAGNOSIS: same PROCEDURE: Right knee 1. Partial lateral meniscectomy, CPT #19222 2. Greater than 2 compartment synovectomy, CPT #35869: Suprapatellar, medial, and intercondylar 3.Open proximal MCL avulsion fracture non-union repair, CPT #14454 SURGEON: Sloan Hartley RIGGING LOFT MECHANIC: Wily Nelson ANESTHESIA TYPE: Local By Surgeon and General LMA/ETT Refer to Anesthesia Record ESTIMATED BLOOD LOSS: 5 PATHOLOGY: none sent TOURNIQUET TIME: 0 COMPLICATIONS: None Patient was transported to: PACU Patient's condition: stable Implants: Arthrex 4.75mm knotless SwiveLock x1 Indications: Please see complete medical record for details. Findings: Exam under anesthesia: Stable varus valgus Handy with full range of motion. Prominence over medial epicondyle without gross motion. Arthroscopic findings: Significant suprapatellar medial intercondylar and lateral synovitis from prior likely multiligamentous bony equivalent meniscal and ligament knee injuries. Relatively preserved articular cartilage throughout. Intact medial meniscus. Intact PCL. Evidence of prior at least single bundle ACL injury scarred to PCL and intact probably PL bundle. Lateral meniscus posterior horn horizontal partial peripheral tear. Chronic appearing disruption of posterior lateral joint capsule with relatively healed or intact popliteus. Negative drive-through sign medial meniscus medial joint. Procedure Description: In the operating room, genral anesthesia was induced. The patient was positioned supine on the operating room table. All bony prominences were well-padded. Preoperative antibiotics were administered. The knee was prepped and draped in the usual sterile fashion. The correct patient, procedure, and side of the procedure were all verified prior to incision. Exam under anesthesia was performed. 25 cc of 0.25% bupivacaine and 1.5% lidocaine with epinephrine 50-50 mixture was infiltrated about the open MCL nonunion site and the planned anteromedial and anterolateral knee arthroscopy portals. The portals were established and a complete diagnostic arthroscopy was performed with relevant findings detailed above. The mechanical shaver was used to remove pathologic and impinging synovium from the medial, lateral, intracondylar, and patellofemoral compartments restoring normal contour and removing chronic scar adhesions about prior injury zones. Using a combination of hand instruments including meniscal biters and a power shaver the lateral meniscus was debrided of all torn tissue to a stable margin. Care was taken to preserve as much meniscus tissue was possible and given the peripheral nature of the horizontal tear with slight vertical extension from inferior to superior less was removed as opposed to more as this would essentially require a subtotal posterior horn meniscectomy. The meniscal remnant was probed and found to have a stable margin, stable root, and no other tears. There was excellent bleeding vascular tissue once the tear zone was debrided. The knee was copiously irrigated with arthroscopic fluid until there was a clear effluent before being drained of all fluid. The anteromedial and anterolateral portals were closed in 3-0 Monocryl in a buried interrupted fashion. The MCL proximal avulsion fracture nonunion was localized under fluoroscopic guidance. A few centimeter lateral incision was made and full-thickness flaps raised down to the periosteum MCL tissue covering the bone. The bone fragment did not demonstrate any gross motion. Deep blade was used to incise just superior to the bone fragment and expose the nonunion site. The fragment was otherwise well fixated on proximal and inferior margins. The fragment was retracted and raised/the bone bed could be prepared removal of fibrinous tissue and rasped to a fresh occluded bed. There was no way to achieve anatomic reduction given significant chronicity of injury. The 2.5 mm drill followed by SwiveLock tap were used to place a 4.75 mm knotless SwiveLock anchor loaded with fiber tape in the nonunion site placed somewhat superiorly and proximally. The bone fragment was reduced over the suture anchor and one of the fiber tapes passed around the inferior aspect of the bone fragment circumferentially using a suture lasso. The fiber tapes were then tied with compression over the suture anchor nonunion site. The knotless repair mechanism was then used to place a horizontal knotless repair suture over the rent in the periosteum and MCL used to access the nonunion and secure this tissue and bone more distally and anteriorly. There is no motion at this repaired nonunion site. C-arm fluoroscopy used to assess appropriate suture anchor and fracture position. Wound was irrigated with normal saline. Deep full-thickness tissue was closed using 2-0 Monocryl taking care to reduce not prominence. Subcutaneous tissue was closed in 3-0 Monocryl in a buried running fashion. Steri-Strips Xeroform applied over all incisions followed by sterile soft roll, 4 4 gauze, and Yo bandage. The extremities placed into a long-leg knee immobilizer. The patient awoke from anesthesia without complication and was transferred to the recovery room in a stable condition.
--- NOTE | 2021-08-08 08:55 | W.ANESPRE ---
General Info Date of Service Date Performed: 08/08/21 Height: 6 ft 1 in Weight: 94.347 kg Body Mass Index (BMI): 27.4 Surgical Procedure: Operation Date: 08/08/21 11:25 Proposed Procedures Side Surgeon p Knee Arthroscopy w/any indicated meniscal, chondral, synovial surgery Right Sloan Hartley MD s open medial collateral ligament avulsion and non-union takedown and repair Right Sloan Hartley MD Meds Allergies and Home Medications Allergies Allergy/AdvReac Type Severity Reaction Status Date / Time atorvastatin AdvReac Intermediate MYALGIAS Verified 08/08/21 10:12 hydromorphone [From Dilaudid] AdvReac Intermediate nausea and Verified 08/08/21 10:12 vomitting Home Medication Medication Instructions Recorded losartan 25 mg PO HS 08/04/17 omeprazole 20 mg capsule,delayed 20 mg PO DAILY #60 cap 04/24/20 release lorazepam 0.5 mg tablet 1 mg PO ONCE PRN tab 05/30/21 valacyclovir 1 gram tablet 2,000 mg PO Q12H tab 05/30/21 aspirin 81 mg PO DAILY 14 Days #14 tab 08/08/21 naproxen 250 - 500 mg PO BID PRN #40 tab 08/08/21 oxycodone 5 - 10 mg PO Q4H PRN #18 tab MDD 08/08/21 30 mg Current Visit Medications: Current Medications Generic Name Dose Route Start Last Admin Trade Name Freq PRN Reason Stop Dose Admin Ringer's Solution 1,000 mls @ 100 mls/hr 08/08/21 06:00 IV 08/11/21 23:59 [facility] Cefazolin Sodium/Dextrose 2 gm in 50 mls @ 100 mls/hr 08/08/21 06:00 Ancef Duplex IVPB 08/08/21 16:00 PREOP GABBY IV Miscellaneous Supplies 1 each 08/08/21 06:00 Iv Access IV 08/11/21 23:59 DIRECTED GABBY Naproxen 250 - 500 mg 08/08/21 07:31 Naproxen 500 Mg Tab PO BID PRN PRN Oxycodone HCl 5 - 10 mg 08/08/21 07:31 Oxycodone 5 Mg Tab PO Q4H PRN PRN Sodium Chloride 0 ml 08/08/21 06:00 Normal Saline Flush 10 Ml Syr IV 08/11/21 23:59 PRN PRN Sodium Chloride 0 ml 08/08/21 06:00 Normal Saline 10 Ml Vial IJ 08/11/21 23:59 DIRECTED PRN Sterile Water 0 ml 08/08/21 06:00 Water,Injection,Sterile 10 Ml Vial IJ 08/11/21 23:59 DIRECTED PRN PFSH Active Problems Active Problems: Problem Status Onset Code 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 MCL sprain of right knee S83.411A Lateral meniscal tear S83.289A Shortness of breath R06.02 Chest pain R07.9 Left wrist pain M25.532 Sensorineural hearing loss of both ears H90.3 Discomfort of right ear H92.01 Crushing injury of right leg S87.81XA Toe pain, right 06/02/17 M79.674 Restless legs G25.81 Malignant neoplasm of skin C44.90 Lipoma D17.9 Hypertensive disorder 08/18/10 I10 Hyperlipidemia E78.5 Hemorrhoids K64.9 History of tobacco use Z87.891 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 Esophageal reflux K21.9 Crushing injury of right knee, subsequent encounter 04/30/16 S87.01XD Palpable mass of neck R22.1 Hallux rigidus of right foot M20.21 Lipoma of neck D17.0 Cervical spondylosis M47.812 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 Status post repair of hydrocele Tobacco Smoking/Tobacco Use Status: Former Tobacco Use Alcohol Alcohol Intake: never Substance Use Substance use: Daily Substance use type: marijuana Details: Smoking hx of 1-2ppd x 20 yrs, quitting approximately 2000. Pt. reports daily edible marijuana consumption 12/28/18 @ 1900, per pt. -BR Marijuana: t-1, one bowl Vital Signs and Lab Results Lab Results Blood Type / Crossmatch: No Data to Display Complete Blood Count: No Data to Display Complete Metabolic Panel: No Data to Display Liver Function Panel: No Data to Display Coagulation Panel: No Data to Display Cardiac Panel: No Data to Display Arterial Blood Gas: No Data to Display Venous Blood Gas: No Data to Display Pancreas Panel: No Data to Display Thyroid Panel: No Data to Display Infectious Disease: Coronavirus (COVID-19)(PCR) Negative (Negative) 08/06/21 11:03 08/06/21 Coronavirus 2019 Source Nasal/Nares 08/06/21 11:03 08/06/21 Blood Cultures: No Data to Display Toxicology Panel: No Data to Display Imaging and Studies Imaging and Studies Study information below may be from another EMR and interpreted by another provider. Please see original notes in EMR for more complete details. EKG Summary: Conclusion Sinus rhythm...normal P axis, V-rate 50- 99 Right bundle branch block...QRSd>120, terminal axis(90,270) Stress Test Summary: Stress ECG Conclusion 1. Resting electrocardiogram showed right bundle branch block 2. Patient exercised on the Lobito protocol and completed a workload of 7.08 METS, stopping due to shortness of breath 3. Hypertensive blood pressure response to exercise. Normal heart rate response, the patient achieved 93% of predicted heart rate for age 4. At peak exercise, the electrocardiogram showed J-point depression and upsloping ST segments, negative for myocardial ischemia 5. Atrial and ventricular ectopic beats were noted Pace Treadmill Score is 6 which is Low risk. Anesthesia Assessment and Plan Anesthesia History Personal History: No History of Anesthesia Complications Family History: No Family History of Anesthesia Complications Exercise Tolerance Exercise Tolerance: Metabolic Equivalents>4 Pertinent Negatives Pertinent Negatives: No Symptoms of GERD Cardiac & Pulmonary Exam Cardiac Exam: Normal S1/S2 Heart Sounds Pulmonary Exam: Clear Bilateral Breath Sounds Implantable Cardiac Device Does patient have a Pacemaker or an ICD?: No Airway Exam Known Difficult Airway: No Mallampati Class: 2 Mouth Opening: Normal (> 3cm) Thyromental Distance: Greater than 3 cm Neck Range of Motion: Full ROM Neck Circumference: Normal Teeth Condition: Normal Dentition ASA Classification ASA Score: ASA 2 Emergency Case?: No NPO Status NPO Status: NPO Clears >2 hours, Solids >8 hours Anesthesia Plan Resuscitation Status: Full Code Anesthesia Technique: General Anesthesia Airway Planned: LMA Monitors Used: Standard Monitors Preoperative Comments:: Recent chest pain. Inconclusive result from [place]. Repeat with nuclear stress here at [facility] and cleared with Magdalene. Patient reportedly has lost 30 pounds and quit the job that was causing him the stress he associated with the chest discomfort.
[2021-08-08] MEDS: Lactated Ringers 1,000 ML 100 ML IV (10:46)
[2021-08-08] MEDS: ceFAZolin 2 GM/50 ML BAG IVPB (11:29)
[2021-08-08] MEDS: EPINEPHrine 30 MG/30 ML VIAL (11:43)
[2021-08-08] MEDS: Bupivacaine 0.25% Pres-Free 30 ML VIAL (12:41)
--- NOTE | 2021-08-08 12:56 | DI.RAD_ITS ---
Exam(s) XR KNEE RT 1V EXAM: XR KNEE RT 1V CLINICAL HISTORY: R KNE CRUSH INJURY/ LAT MENISCAL TEAR/ MCL SPRAIN TECHNIQUE: 2D and realtime digital imaging was performed. CONTRAST MATERIAL: Refer to procedure report. COMPARISON: CR XR KNEE RT 3V AP,LAT,LO from 05/15/2021 FINDINGS: Fluoroscopy was provided for Dr. Hartley during the performance of a right knee surgery.. Please refe r to the procedure report for complete details. Kar=0.48 mGy IMPRESSION: RADIATION DOSE DELIVERED:
--- NOTE | 2021-08-08 12:59 | PDOC.DSDIS_ITS ---
Discharge Plan Disposition Patient Disposition: HOME Condition: Stable Discharge Details Reason For Visit: Right knee surgery Attending Provider: Sloan Hartley Primary Care Provider: Slim Corley [place] Meds and New Rx's Prescriptions: New aspirin 81 mg tablet,delayed release (DR/EC) 81 mg PO DAILY 14 Days Qty: 14 RF: 0 naproxen 250 mg tablet 250 - 500 mg PO BID PRNQty: 40 RF: 0 oxycodone 5 mg tablet 5 - 10 mg PO Q4H MDD 30 mg PRN (Reason: moderate to severe pain) Qty: 18 RF: 0 Continued omeprazole 20 mg capsule,delayed release(DR/EC) 20 mg PO DAILY Qty: 60 RF: 0 lorazepam 0.5 mg tablet 1 mg PO ONCE PRNRF: 0 valacyclovir 1 gram tablet 2,000 mg PO Q12H RF: 0 losartan 25 MG tablet 25 mg PO HS RF: 0 Discontinued naproxen sodium 220 mg tablet 440 mg PO Q12H PRNRF: 0 Discharge Instructions Additional Instructions: Surgery: Right knee arthroscopy with partial lateral meniscectomy and synovectomy and open MCL avulsion fracture nonunion repair Activity: Weightbearing as tolerated. Advance range of motion as comfort allows. No knee brace or crutches needed as soon as comfortable. Recommend avoiding sports, pivoting, and squatting for 2-3 months. A physical therapy prescription will be sent electronically to start in 2 to 3 weeks. Prescriptions: Aspirin 81 mg take 1 daily to prevent a blood clot for 14 days Naproxen 250 mg take 1-2 every 12 hours with a meal as needed for moderate pain Oxycodone 5 mg take 1-2 every 4-6 hours as needed for severe pain You may use [id number] Tylenol (acetaminophen) as needed for mild pain. These pain medications may be taken all at once or in different combinations as needed. Also, recommend Colace (docusate) as a stool softener as surgery and pain medicine cause constipation. Dressings: Leave dressing in place for 3 days. May then remove and leave open to air or cover incisions with Band-Aids. May shower after 5 days. Follow-up: 10-[address] Hartley Let us know right away if you develop any redness, drainage, fevers, chest pain, or trouble breathing. Do not drink alcohol or drive for at least 24 hours after anesthesia. Please call the office during business hours with any questions or concerns. Referrals: Sloan Hartley MD [ [facility] STAFF PHYSICIAN] - Discharge Orders Discharge Orders: Discharge Order (Routine); Ordered 08/08/21 Ordered By: Sloan Hartley DS: Diagnosis Discharge Diagnosis (1) Chondromalacia of right knee: Status: Acute (2) MCL sprain of right knee: Status: Acute (3) Lateral meniscal tear: Status: Acute (4) Crushing injury of right knee, subsequent encounter: Status: Acute
[2021-08-08] MEDS: fentaNYL 100 MCG/2 ML VIAL IVP ×2 (13:25→13:43)
--- NOTE | 2021-08-08 15:19 | W.ANESPOSTOP ---
Postoperative Evaluation Date, Time and Location Date Performed: 08/08/21 Time Performed: 15:25 Patient Location: Day Surgery Unit Vital Signs Most Recent Imported Vital Signs: Most Recent Vital Signs Temp Pulse Resp BP Pulse Ox 36.2 C L 50 L 16 122/84 95 08/08/21 14:27 08/08/21 14:27 08/08/21 14:27 08/08/21 14:27 08/08/21 14:27 Pain Score Most Recent Pain Score: Most Recent Pain Score Pain Level 3 08/08/21 13:55 Assessment Mental Status: Awake (Alert & Oriented to Patient Baseline) Airway and Respiratory Function: Patent airway with normal (patient baseline) respiratory exam Cardiovascular Function: Hemodynamically Stable Hydration Status: Adequately Hydrated Nausea & Vomiting: No Nausea or Vomiting Pain: Pt. Denies Any Pain Peripheral Nerve Block: Patient did not receive a nerve block
== END 2021-08-08 15:35 | disposition home or self-care (01) ==
LOC: SUR 10:02
PROVIDERS: PCP Neuromusculoskeletal Medicine & OMM; Visit Provider Student in an Organized Health Care Education/Training Program
PROC: (CPT 29870; principal; 2021-08-08 11:15)
PROC: (CPT 27425; 2021-08-08 11:15)
DX: S83.281A Other tear of lateral meniscus, current injury, right knee, initial encounter (principal); S83.411A Sprain of medial collateral ligament of right knee, initial encounter; S87.01XA Crushing injury of right knee, initial encounter; M94.261 Chondromalacia, right knee; I10 Essential (primary) hypertension; K21.9 Gastro-esophageal reflux disease without esophagitis; I45.10 Unspecified right bundle-branch block; X58.XXXA Exposure to other specified factors, initial encounter
CPT/HCPCS: 27405; 29876; 29881; 73560; J0690; J1100; J2001; J2270; J2405; J2704; J3010

== ENCOUNTER 2021-08-20 10:40 | Outpatient (CLI) | payer OTHER, SELFPAY ==
--- NOTE | 2021-08-20 10:30 | DI.RAD_ITS ---
Exam(s) XR KNEE RT 2V AP,LAT EXAM: XR KNEE RT 2V AP,LAT CLINICAL HISTORY: RIGHT KNEE F/U. TECHNIQUE: 2D digital imaging was performed. COMPARISON: CR XR KNEE RT 3V AP,LAT,LO from 05/15/2021 FINDINGS: No evidence of fracture nor joint effusion. Bony excrescence or bony density again noted off the out er aspect of the medial femoral condyle appears unchanged. However, on the Present study there appears to be prominent overlying soft tissue swelling which was not evident on t he prior study. Correlation with clinical findings recommended. Joint spaces appear relatively well maintained. No prominent joint space narrowing-osteoarthritic de generative changes. No lytic osseous lesions. IMPRESSION: Medial findings as described above. DATA REPOSITORY: RADIATION DOSE DELIVERED:
== END 2021-08-20 10:41 | disposition home or self-care (01) ==
LOC: DIORS 10:41
PROVIDERS: PCP Neuromusculoskeletal Medicine & OMM; Referring Provider Neuromusculoskeletal Medicine & OMM; Visit Provider Student in an Organized Health Care Education/Training Program
DX: M25.561 Pain in right knee (principal); M94.261 Chondromalacia, right knee; M79.89 Other specified soft tissue disorders
CPT/HCPCS: 73560

== ENCOUNTER 2021-10-01 11:09 | Outpatient (CLI) | payer OTHER, SELFPAY ==
--- NOTE | 2021-10-01 11:00 | DI.RAD_ITS ---
Exam(s) XR KNEE RT 2V AP,LAT EXAM: XR KNEE RT 2V AP,LAT CLINICAL HISTORY: follow up. TECHNIQUE: 2D digital imaging was performed. COMPARISON: MR MR LOWER JOINT RT WO from 06/10/2021 CR XR KNEE RT 2V AP,LAT from 08/20/2021 FINDINGS: 3 views No evidence of fracture nor obvious joint effusion. Only mild degenerative changes. No obvious join t space narrowing on the weight-bearing standing view. There is a calcific density noted medial femoral condyle. This measures 2 cm craniocaudal by 0.7 cm wide. It was also evident on the MRI scan of 06/10/2021 was not associated with overlying soft tissu e swelling at that time. That MRI study reveals that this is an independent corticated calcific dens ity interposed between the MCL and the outer aspect of the medial condyle. IMPRESSION: Medial findings as described above. DATA REPOSITORY: RADIATION DOSE DELIVERED:
== END 2021-10-01 11:10 | disposition home or self-care (01) ==
LOC: DIORS 11:10
PROVIDERS: PCP Neuromusculoskeletal Medicine & OMM; Referring Provider Neuromusculoskeletal Medicine & OMM; Visit Provider Physician Assistant Surgical
DX: M85.861 Other specified disorders of bone density and structure, right lower leg; S87.01XD Crushing injury of right knee, subsequent encounter; M25.561 Pain in right knee
CPT/HCPCS: 73560

== ENCOUNTER 2021-11-19 11:54 | Outpatient (CLI) | payer OTHER, SELFPAY ==
--- NOTE | 2021-11-19 11:30 | DI.RAD_ITS ---
Exam(s) XR KNEE RT 2V AP,LAT EXAM: XR KNEE RT 2V AP,LAT CLINICAL HISTORY: Right knee. TECHNIQUE: 2D digital imaging was performed. Three views. COMPARISON: XR KNEE RT 1V from 08/08/2021 CR XR KNEE RT 2V AP,LAT from 08/20/2021 CR XR KNEE RT 2V AP,LAT from 10/01/2021 FINDINGS: BONES: No acute fracture is present. No bony destructive lesion is seen. JOINTS: The knee is normally aligned. No joint effusion is seen. Mild periarticular spurring. SOFT TISSUE: A calcification is again noted adjacent to the medial femoral condyle. There is adjacen t soft tissue swelling similar to prior. IMPRESSION: calcification medial to the medial femoral condyle with adjacent soft tissue swelling, unchanged. DATA REPOSITORY: RADIATION DOSE DELIVERED:
== END 2021-11-19 11:55 | disposition home or self-care (01) ==
LOC: DIORS 11:55
PROVIDERS: PCP Neuromusculoskeletal Medicine & OMM; Referring Provider Neuromusculoskeletal Medicine & OMM; Visit Provider Student in an Organized Health Care Education/Training Program
DX: S83.411A Sprain of medial collateral ligament of right knee, initial encounter (principal); M25.861 Other specified joint disorders, right knee
CPT/HCPCS: 73560

== ENCOUNTER → 2023-10-06 17:34 | Outpatient (CLI) | payer MEDICARE, SELFPAY ==
--- NOTE | 2023-10-06 11:05 | DI.RAD_ITS ---
Exam(s) XR CERVICAL SP LANG TRAUMA 2-3V EXAM: XR CERVICAL SP LANG TRAUMA 2-3V CLINICAL HISTORY: M47.812 Cervical spondylosis, ? abnormal motion. TECHNIQUE: 2D digital imaging was performed. Three views. COMPARISON: MR MR cervical spine wo from 11/02/2018 FINDINGS: BONES: No fracture or destructive lesion. Vertebral bodies are unremarkable. DISKS: Endplate osteophytes at C2-3, C4-5 through C6-7. Facet degenerative changes present throughou t. Multilevel bilateral neural foraminal narrowing. ALIGNMENT: Straightening of the normal cervical lordosis secondary to degenerative changes. The odon toid and atlantoaxial articulations are normal. SOFT TISSUE: Normal. The lung apices are clear. IMPRESSION: Negative disc changes and facet degenerative changes cause bilateral neural foraminal narrowing. DATA REPOSITORY: RADIATION DOSE DELIVERED:
== END ==
PROVIDERS: PCP Neuromusculoskeletal Medicine & OMM; Visit Provider Physician Assistant Surgical
DX: M47.812 Spondylosis without myelopathy or radiculopathy, cervical region (principal); M54.2 Cervicalgia
CPT/HCPCS: 72040

== ENCOUNTER → 2023-10-28 04:08 | Outpatient (CLI) | payer MEDICARE, SELFPAY ==
--- NOTE | 2023-10-28 09:04 | DI.RAD_ITS ---
Exam(s) XR CERVICAL SP LANG TRAUMA 2-3V EXAM: XR CERVICAL SP LANG TRAUMA 2-3V CLINICAL HISTORY: F/U TO PREV,? ABNL MOTION,CERVICAL SPONDYLOSIS,M47.812. TECHNIQUE: 2D digital imaging was performed. Lateral flexion and extension views were obtained. COMPARISON: CR XR CERVICAL SP LANG TRAUMA 2-3V from 10/06/2023 FINDINGS: This is a limited examination with only flexion and extension views. There is cervical spondylosis a gain noted with disc space narrowing at C5-6 and C6-7. Endplate osteophytes are seen at multiple lev els, particularly from C3-4 through C6-C7. There is no significant subluxation seen with flexion or extension. The prevertebral soft tissues are unremarkable. IMPRESSION: 1. Cervical spondylosis. 2. No significant subluxation with flexion or extension. DATA REPOSITORY: RADIATION DOSE DELIVERED:
== END ==
PROVIDERS: PCP Neuromusculoskeletal Medicine & OMM; Visit Provider Physician Assistant Surgical
DX: M47.812 Spondylosis without myelopathy or radiculopathy, cervical region (principal)
CPT/HCPCS: 72040

== ENCOUNTER 2024-01-12 11:40 | Outpatient (CLI) | payer OTHER, SELFPAY ==
--- NOTE | 2024-01-12 09:15 | DI.RAD_ITS ---
Exam(s) XR KNEE RT 2V AP,LAT EXAM: XR KNEE RT 2V AP,LAT CLINICAL HISTORY: F/U RIGHT KNEE PAIN. TECHNIQUE: 2D digital imaging was performed. COMPARISON: CR XR KNEE RT 2V AP,LAT from 11/19/2021 FINDINGS: Two views. No evidence of fracture or obvious joint effusion. No obvious joint space narrowing on the weight-be aring view. There is, however, calcific density on the medial aspect of the knee intimately associat ed with the outer aspect of the medial femoral condyle-medial collateral ligament area. Possibly sig nificant. No other osseous findings. IMPRESSION: As above. DATA REPOSITORY: RADIATION DOSE DELIVERED:
== END 2024-01-12 11:41 | disposition home or self-care (01) ==
LOC: DIORS 11:45
PROVIDERS: PCP Neuromusculoskeletal Medicine & OMM; Referring Provider Neuromusculoskeletal Medicine & OMM; Visit Provider Student in an Organized Health Care Education/Training Program
DX: S83.411A Sprain of medial collateral ligament of right knee, initial encounter (principal); M61.461 Other calcification of muscle, right lower leg
CPT/HCPCS: 73560

== ENCOUNTER 2024-02-22 02:06 | Outpatient (CLI) | payer OTHER, SELFPAY ==
--- NOTE | 2024-02-22 07:15 | DI.MRI_ITS ---
Exam(s) MR LOWER JOINT RT WO EXAM: MR LOWER JOINT RT WO CLINICAL HISTORY: R KNEE PAIN,chondromalacia rt knee, m94.261,mcl sprain,[id number]. TECHNIQUE: Multiplanar multisequence MRI was performed. COMPARISON: MR MR LOWER JOINT RT WO from 06/10/2021 CR XR KNEE RT 2V AP,LAT from 01/12/2024 FINDINGS: BONES: There is no fracture or contusion pattern. Postsurgical changes are seen in the medial femoral condyle may reflect prior MCL repair. JOINTS: There is sending of the articular cartilage overlying the patella particularly the medial pat ellar facet. Mild subchondral edema is made present. There is a small amount of fluid in the joint space. TENDONS: Extensor mechanism: Unremarkable. Medial retinaculum: Unremarkable. Lateral retinaculum: Unremarkable. Popliteus: Unremarkable. MUSCLES: Unremarkable. MENISCI: Mild degenerative signal seen in the body of the medial meniscus. No evidence of a meniscal tear. The lateral meniscus is unremarkable. SOFT TISSUES: There is a small popliteal cyst. Old osseous densities are seen in the medial soft tis sues adjacent to the medial femoral condyle. LIGAMENTS: Anterior Cruciate: Unremarkable. Posterior Cruciate: Unremarkable. Medial Collateral:Unremarkable. Lateral Collateral: Unremarkable. OTHER: IMPRESSION: 1. Chondromalacia seen in the medial patellar facet. 2. Postsurgical changes seen in the medial femoral condyle. 3. No evidence of a ligament tear. 4. Degenerative changes in the medial meniscus but no evidence of a meniscal tear. DATA REPOSITORY:
== END 2024-02-22 02:26 ==
LOC: DI 02:06
PROVIDERS: PCP Neuromusculoskeletal Medicine & OMM; Visit Provider Student in an Organized Health Care Education/Training Program
DX: M94.261 Chondromalacia, right knee (principal)
CPT/HCPCS: 73721